=== PATIENT | female | born 1960 | race Caucasian/White ===

== ENCOUNTER 2018-10-18 09:46 | Emergency (ER) | payer OTHER ==
[2018-10-18 09:52] VITALS: BP 101/59; PULSE 75; TEMP 98; BMI 37.3
--- NOTE | 2018-10-18 11:49 | PDOC ---
History of Present Illness - General Chief Complaint: Pain Stated Complaint: LT LEG PAIN Time Seen by Provider: 10/18/18 10:26 History Source: Patient Exam Limitations: No Limitations (left leg discomfort) - History of Present Illness Associated Symptoms: denies: chest pain, diaphoresis, fever/chills, shortness of breath Past History - Travel Traveled outside of the country in the last 30 days: No Close contact w/someone who was outside of country & ill: No - Past Medical History Allergies/Adverse Reactions: Allergies Allergy/AdvReac Type Severity Reaction Status Date / Time nitrofurantoin Allergy Verified 10/18/18 09:48 [From Macrobid] nitrofurantoin Allergy Verified 10/18/18 09:48 macrocrystalline [From Macrobid] Home Medications: Ambulatory Orders Albuterol Sulfate [Ventolin HFA 18 GM] 2 puff IH Q4H PRN #1 03/11/14 Aspirin 81 mg PO DAILY 03/11/14 Citalopram Hydrobromide [Celexa] 20 mg PO DAILY tablet 03/11/14 Clonazepam 0.5 mg PO DAILY 03/11/14 Fluticasone Propionate [Flonase] 1 spray NS BID #1 spray 03/11/14 Montelukast Sodium [Singulair] 10 mg PO DAILY tablet 03/11/14 Canagliflozin [Invokana] 100 mg PO DAILY tablet 04/07/15 Levothyroxine Sodium 50 mcg PO DAILY tablet 04/07/15 Atorvastatin Ca [Lipitor] 40 mg PO HS 08/17/15 Fish Oil 09/04/15 Vitamin C 09/04/15 Vitamin D3 09/04/15 Anemia: No Asthma: Yes (INCLUDING SEASONAL ALLERGIES) Cancer: No Cardiac Disorders: Yes (ANGINA) CVA: Yes (TIA) COPD: No CHF: No Dementia: No Diabetes: (IMPAIRED GLUCOSE TOLERANCE) GI Disorders: Yes (GERD,CONSTIPATION, COLON POLYP, HEMORRHOIDS) Disorders: Yes (H/O UTERINE TUMOR) HTN: No Hypercholesterolemia: Yes Liver Disease: No Seizures: No Thyroid Disease: Yes (THYROID NODULES) - Surgical History Abdominal Surgery: No Appendectomy: No Cardiac Surgery: No Cholecystectomy: No Lung Surgery: No Neurologic Surgery: No Orthopedic Surgery: No - Immunization History Immunization Up to Date: No - Suicide/Smoking/Psychosocial Hx Smoking History: Former smoker Have you smoked in the past 12 months: No Information on smoking cessation initiated: No Hx Alcohol Use: No Drug/Substance Use Hx: No Substance Use Type: None Hx Substance Use Treatment: No Review of Systems - Review of Systems Is the patient limited Azeri proficient: No Constitutional: No: Chills, Fever Respiratory: No: Orthopnea, Shortness of Breath, Wheezing Cardiac (ROS): No: Chest Pain, Lightheadedness, Palpitations Musculoskeletal: Yes: Other (left lower leg discomfort). No: Back Pain, Muscle Weakness Neurological: No: Numbness, Paresthesia, Tingling, Weakness, Unsteady Gait, Dizziness *Physical Exam - Vital Signs Last Vital Signs Temp Pulse Resp BP Pulse Ox 98 F 75 18 101/59 L 100 10/18/18 09:48 10/18/18 09:48 10/18/18 09:48 10/18/18 09:48 10/18/18 09:48 - Physical Exam General Appearance: Yes: Nourished Respiratory/Chest: positive: Lungs Clear, Normal Breath Sounds Cardiovascular: positive: Regular Rhythm, Regular Rate, S1, S2 Musculoskeletal: positive: Normal Inspection Extremity: positive: Normal Capillary Refill, Normal Inspection, Normal Range of Motion, Other (Left lower leg: no erythema, warmth, FROM, distal pulse intact. + tenderness behind knee, no palpalbe lump) Neurologic: positive: diet aid II-XII NML intact, Fully Oriented, Alert, Normal Mood/ Affect, Normal Response, Motor Strength 5/5 ED Treatment Course - RADIOLOGY Radiology Studies Ordered: Category Date Time Status DUPLEX VASCUL US-1 LEG [US] Stat Ultrasound 10/18/18 10:42 Completed Medical Decision Making - Medical Decision Making 10/18/18 11:46 58y/o F with radiofrequency treat to veins for several weeks at a vascular clinic reports she has been experiencing intermittent pain and parenthesia to behind left knee X 3 days denies any CP, recent air plane travel, SOB, fever or chills pt is here to r/o DVT on exam: no cellulites, FROM duplex neg for DVT pt advised to f/u vascular clinic *DC/Admit/Observation/Transfer Diagnosis at time of Disposition: Leg pain, left - Discharge Dispostion Disposition: HOME Condition at time of disposition: Stable Decision to Admit order: No - Referrals Referrals: Star Villeda PA [Primary Care Provider] - - Patient Instructions Additional Instructions: Your sonogram today was negative for blood clot in the leg please follow up with vascular clinic as scheduled return to the ER if worsening symptoms occurs - Post Discharge Activity
== END 2018-10-18 12:18 | disposition home or self-care (01) ==
LOC: JERFT 09:46
DX: M79.605 Pain in left leg (principal); Z87.891 Personal history of nicotine dependence; E78.00 Pure hypercholesterolemia, unspecified; E07.9 Disorder of thyroid, unspecified; J45.909 Unspecified asthma, uncomplicated; Z86.73 Personal history of transient ischemic attack (TIA), and cerebral infarction without residual deficits
CPT/HCPCS: 93971-TC; 99281-25

== ENCOUNTER 2022-04-20 04:27 | Day surgery (SDC) | payer OTHER ==
[2022-04-15 13:13] VITALS: BMI 40.6
[~2022-04-20 04:27] MED LIST: BSS (NA/CA/MG/K) BALANCED SALT SOLUTION OPHTH SOLN 15 ML BOTTLE OD ONE; CHONDROITIN SU A/HYALUR SOD 1 KIT IO ONE; EPINEPHrine 1:1,000 1,000 MCG/ML ML SQ ONE; LIDOCAINE 1% P/F 10 MG/ML VIAL PNB ONE; POVIDONE-IODINE 5% OPHTHALMIC PREP 30 ML SOLUTION OD ONE; TETRACAINE 0.5% OPHTH SOLN 2 ML BOTTLE OD ONE; TRYPAN BLUE 0.5 ML DISP.SYRIN IO ONE
[2022-04-20] MEDS ORDERED: TETRACAINE 0.5% OPHTH SOLN 2 ML BOTTLE ONE (07:24)
[2022-04-20] MEDS ORDERED: POVIDONE-IODINE 5% OPHTHALMIC PREP 30 ML SOLUTION ONE (07:25)
[2022-04-20] MEDS ORDERED: BSS (NA/CA/MG/K) BALANCED SALT SOLUTION OPHTH SOLN 15 ML BOTTLE ONE (07:25)
[2022-04-20] MEDS ORDERED: TROPICAMIDE 1% OPHTH SOLN 15 ML BOTTLE ONE (07:53)
[2022-04-20] MEDS: TROPICAMIDE 1% OPHTH SOLN 15 ML BOTTLE OP SCH ×3 (08:00→08:10)
[2022-04-20] MEDS: PHENYLEPHRINE 2.5% OPHTH SOLN 15 ML BOTTLE OP SCH ×3 (08:00→08:10)
[2022-04-20] MEDS: KETOROLAC TROMETHAMINE 0.5% EYE DROP 1 DROP DROPS OP SCH ×3 (08:00→08:10)
[2022-04-20] MEDS: CYCLOPENTOLATE HCL 1% OPHTH SOLN 2 ML BOTTLE OP SCH ×3 (08:00→08:10)
[2022-04-20] MEDS: OFLOXACIN 0.3% OPHTHALMIC SOLUTION 5 ML BOTTLE OP SCH ×3 (08:00→08:10)
[2022-04-20 08:14] VITALS: RESP 18
[2022-04-20] MEDS ORDERED: LIDOCAINE HCL/PF 2% SDV 5ML VIAL ONE (09:56)
[2022-04-20] MEDS ORDERED: BUPIVACAINE HCL/PF 0.75% 10 ML VIAL ONE (09:56)
[2022-04-20] MEDS ORDERED: MIDAZOLAM HCL 2 MG/2 ML SINGLE DOSE VIAL ONE (10:18)
[2022-04-20] MEDS ORDERED: PROPOFOL 20 ML ONE (10:25)
[2022-04-20] MEDS ORDERED: LIDOCAINE HCL/PF 2% SDV 5ML VIAL PNB ONE (10:28)
[2022-04-20] MEDS ORDERED: BUPIVACAINE HCL/PF 0.75% 10 ML VIAL RB ONE (10:28)
[2022-04-20] MEDS ORDERED: POVIDONE-IODINE 5% OPHTHALMIC PREP 30 ML SOLUTION OD ONE (10:37)
[2022-04-20] MEDS ORDERED: BSS (NA/CA/MG/K) BALANCED SALT SOLUTION OPHTH SOLN 15 ML BOTTLE OD ONE (10:38)
[2022-04-20] MEDS ORDERED: LIDOCAINE 1% P/F 10 MG/ML VIAL PNB ONE (10:39)
[2022-04-20] MEDS ORDERED: CHONDROITIN SU A/HYALUR SOD 1 KIT IO ONE (10:40)
[2022-04-20] MEDS ORDERED: EPINEPHrine 1:1,000 1,000 MCG/ML ML SQ ONE (10:45)
[2022-04-20 11:19] VITALS: PULSE 68
[2022-04-20 12:14] VITALS: BP 112/60; TEMP 97
== END 2022-04-20 12:00 | disposition home or self-care (01) ==
LOC: JASU-SURG 04:27 → MERGE 11:00 → JASU-SURG 12:00
PROVIDERS: ATTEND Ophthalmology
PROC: 08RJ3JZ Replacement of Right Lens with Synthetic Substitute, Percutaneous Approach (ICD-10-PCS; principal; 2022-04-20 10:00)
DX: H26.9 Unspecified cataract (principal)
CPT/HCPCS: 66984; V2632

== ENCOUNTER 2022-05-04 04:30 | Day surgery (SDC) | payer OTHER ==
[2022-05-03 11:39] VITALS: BMI 41.1
[~2022-05-04 04:30] MED LIST changes: +ACETAMINOPHEN 325 MG TABLET (FP) PO PRN; -BSS (NA/CA/MG/K) BALANCED SALT SOLUTION OPHTH SOLN 15 ML BOTTLE OD ONE; +BSS (NA/CA/MG/K) BALANCED SALT SOLUTION OPHTH SOLN 15 ML BOTTLE OS ONE; -EPINEPHrine 1:1,000 1,000 MCG/ML ML SQ ONE; +EPINEPHrine/PF 1 MG/1 ML (1:1,000) AMPULE IO ONE; -LIDOCAINE 1% P/F 10 MG/ML VIAL PNB ONE; +LIDOCAINE HCL 1% PRESERVATIVE FREE - 30ML VIAL IO ONE; -POVIDONE-IODINE 5% OPHTHALMIC PREP 30 ML SOLUTION OD ONE; +POVIDONE-IODINE 5% OPHTHALMIC PREP 30 ML SOLUTION OS ONE; +TETRACAINE 0.5% HCL 0.6ML DROPPER.BOTTLE OS ONE; -TETRACAINE 0.5% OPHTH SOLN 2 ML BOTTLE OD ONE; -TRYPAN BLUE 0.5 ML DISP.SYRIN IO ONE
[2022-05-04] MEDS ORDERED: LIDOCAINE HCL/PF 2% SDV 5ML VIAL ONE ×2 (07:39→10:18)
[2022-05-04] MEDS ORDERED: BUPIVACAINE HCL/PF 0.75% 10 ML VIAL ONE (07:40)
[2022-05-04] MEDS ORDERED: LIDOCAINE HCL/PF 1% SDV 5ML VIAL ONE (07:40)
[2022-05-04] MEDS ORDERED: EPINEPHrine/PF 1 MG/1 ML (1:1,000) AMPULE ONE (07:40)
[2022-05-04] MEDS ORDERED: TETRACAINE 0.5% OPHTH SOLN 2 ML BOTTLE ONE (07:41)
[2022-05-04] MEDS ORDERED: BSS (NA/CA/MG/K) BALANCED SALT SOLUTION OPHTH SOLN 15 ML BOTTLE ONE (07:41)
[2022-05-04] MEDS ORDERED: POVIDONE-IODINE 5% OPHTHALMIC PREP 30 ML SOLUTION ONE (07:41)
[2022-05-04] MEDS ORDERED: TROPICAMIDE 1% OPHTH SOLN 15 ML BOTTLE ONE (08:06)
[2022-05-04] MEDS ORDERED: PHENYLEPHRINE 2.5% OPTHALMIC DROP 2ML BOTTLE ONE (08:06)
[2022-05-04] MEDS ORDERED: DICLOFENAC SODIUM 0.1% OPHTHALMIC 2.5ML BOTTLE ONE (08:07)
[2022-05-04] MEDS ORDERED: CIPROFLOXACIN HCL 0.3% OPHTH 2.5ML BOTTLE ONE (08:08)
[2022-05-04] MEDS ORDERED: CYCLOPENTOLATE HCL 1% OPHTH SOLN 2 ML BOTTLE ONE (08:12)
[2022-05-04] MEDS ORDERED: OFLOXACIN 0.3% OPHTHALMIC SOLUTION 5 ML BOTTLE ONE (08:12)
[2022-05-04] MEDS: KETOROLAC TROMETHAMINE 0.5% EYE DROP 1 DROP DROPS OP SCH ×3 (08:40→08:59)
[2022-05-04] MEDS: CYCLOPENTOLATE HCL 1% OPHTH SOLN 2 ML BOTTLE OP SCH ×3 (08:40→08:59)
[2022-05-04] MEDS: TROPICAMIDE 1% OPHTH SOLN 15 ML BOTTLE OP SCH ×3 (08:41→08:59)
[2022-05-04] MEDS: OFLOXACIN 0.3% OPHTHALMIC SOLUTION 5 ML BOTTLE OP SCH ×3 (08:43→09:00)
[2022-05-04] MEDS: PHENYLEPHRINE 2.5% OPHTH SOLN 15 ML BOTTLE OP SCH ×3 (08:43→09:01)
[2022-05-04] MEDS ORDERED: MIDAZOLAM HCL 2 MG/2 ML SINGLE DOSE VIAL ONE (10:02)
[2022-05-04] MEDS ORDERED: PROPOFOL 40 ML ONE (10:02)
[2022-05-04] MEDS ORDERED: LIDOCAINE HCL/PF 2% SDV 5ML VIAL INF ONE (10:08)
[2022-05-04] MEDS ORDERED: BUPIVACAINE HCL/PF 0.75% 10 ML VIAL RB ONE (10:08)
[2022-05-04] MEDS ORDERED: POVIDONE-IODINE 5% OPHTHALMIC PREP 30 ML SOLUTION OS ONE (10:12)
[2022-05-04] MEDS ORDERED: LIDOCAINE HCL 1% PRESERVATIVE FREE - 30ML VIAL IO ONE (10:17)
[2022-05-04] MEDS ORDERED: ONDANSETRON 4 MG/2 ML VIAL ONE (10:18)
[2022-05-04] MEDS ORDERED: CHONDROITIN SU A/HYALUR SOD 1 KIT IO ONE (10:18)
[2022-05-04] MEDS ORDERED: BSS (NA/CA/MG/K) BALANCED SALT SOLUTION OPHTH SOLN 15 ML BOTTLE IO ONE (10:18)
[2022-05-04] MEDS ORDERED: EPINEPHrine/PF 1 MG/1 ML (1:1,000) AMPULE IO ONE (10:23)
[2022-05-04 10:58] VITALS: RESP 20; TEMP 97.5
[2022-05-04 12:10] VITALS: BP 126/54; PULSE 68
== END 2022-05-04 12:45 | disposition home or self-care (01) ==
LOC: JASU-SURG 04:30
PROVIDERS: ATTEND Ophthalmology
PROC: 08RK3JZ Replacement of Left Lens with Synthetic Substitute, Percutaneous Approach (ICD-10-PCS; principal; 2022-05-04 10:00)
DX: H26.9 Unspecified cataract (principal)
CPT/HCPCS: V2632